=== PATIENT | female | born 1995 | race Hispanic/Latino ===

== ENCOUNTER 2017-11-12 11:27 | Emergency (ER) | payer OTHER, SELFPAY ==
[2017-11-12] MEDS ORDERED: ONDANSETRON 4 MG/2 ML VIAL ONE (11:42)
[2017-11-12 12:08] LABS: Absolute Lymphocytes (CBC) 2.8 K/uL (0.7-4.9); Absolute Monocytes 0.7 K/uL (0.1-1.3); Absolute Neutrophil 6.2 K/uL (1.8-8.0); Basophils % 0.3 % (0-1.3); Eosinophils % 3.1 % (0-4.4); Hematocrit 35.9 % (36.0-45.0); Lymphocytes % 27.6 % (15.3-44.8); MCH 25.6 pg (27.0-35.0); MCV 77.3 fL (80-100); Monocytes % 7.1 % (3.3-12.3); RBC Red Blood Cell Count 4.64 M/uL (3.86-4.86)
[2017-11-12 12:29] LABS: BUN Blood Urea Nitrogen 11 mg/dL (6-20); Bicarbonate 23 mEq/L (21-31); Glucose Level 102 mg/dL (65-120); Potassium 4.1 mEq/L (3.6-5.0); Sodium Level 138 mEq/L (135-145)
[2017-11-12] MEDS ORDERED: ONDANSETRON HCL 40 MG/20 ML VIAL ONE (12:50)
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
[2017-11-12] MEDS ORDERED: ONDANSETRON 4 MG (ODT) TAB ONE (13:35)
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
[2017-11-12] MEDS ORDERED: HYDROCODONE/APAP 10/325 TAB ONE (14:09)
[2017-11-12 14:40] LABS: Urine Blood NEGATIVE (NEG); Urine Glucose NEGATIVE (NEG); Urine Protein NEGATIVE (NEG); Urine Specific Gravity 1.015 (1.005-1.030); Urine pH 6.5 (5.0-7.0)
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
== END 2017-11-12 16:30 | disposition home or self-care (01) ==
LOC: ER 11:27
DX: M79.1 Myalgia (principal); V94.89XA Other water transport accident, initial encounter; Y93.89 Activity, other specified; Y92.814 Boat as the place of occurrence of the external cause; Z88.1 Allergy status to other antibiotic agents; Z88.3 Allergy status to other anti-infective agents
CPT/HCPCS: 36415; 70450; 70496; 70498; 71260; 72125; 74177; 80048; 81003; 81025; 85025; 86850; 86900; 86901; 96374; 99285; J2405; Q9967

== ENCOUNTER 2018-03-23 18:07 | Emergency (ER) | payer OTHER, SELFPAY ==
--- NOTE | 2018-03-23 18:41 | RAD REPORT ---
EXAM DESCRIPTION: CT - Head Brain Wo Cont - 03/23/2018 6:34 pm CLINICAL HISTORY: HEADACHE COMPARISON: Head angio dated 11/12/2017; Neck Angio dated 11/12/2017 TECHNIQUE: All CT scans are performed using dose optimization technique as appropriate and may inclu de automated exposure control or mA/KV adjustment according to patient size. FINDINGS: No intracranial hemorrhage, hydrocephalus or extra-axial fluid collection.No areas of brai n edema or evidence of midline shift. The paranasal sinuses and mastoids are clear. The calvarium is intact. IMPRESSION: No acute intracranial abnormality.
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
== END 2018-03-23 19:39 | disposition home or self-care (01) ==
LOC: ER 18:07
DX: R51 Headache (principal); Z88.3 Allergy status to other anti-infective agents; Z88.1 Allergy status to other antibiotic agents
CPT/HCPCS: 70450; 99284